=== PATIENT | male | born 1955 | race Caucasian/White ===

== ENCOUNTER 2019-12-18 12:14 | Emergency (ER) | payer MEDICAID, OTHER, SELFPAY ==
[~2019-12-18] VITALS: Ht 177.8 cm; Wt 79.0 kg
--- NOTE | 2019-12-18 12:15 | NUR ---
PT PUT ON LH BY PCP FOR "LACK OF SELF CARE" PT DENIES SI/HI. PT WITH HX OF BIPOLAR AND DEPRESSION, WAS AT PCP TODAY TO GET ABILIFY SHOT HE GETS THEM MONTHLY. PER EMS, PT HAS NOT BEEN SHOWERING REGULARLY AND HAS LOST A SIG AMOUNT OF WEIGHT OVER THE LAST MONTH. PT PLACED IN SECURE, RM, SITTER IN PLACE. BELONGINGS BAGGED IN ONE LARGE BIO BAG COVERED WITH CLEAR BAG, BAG TO REMAIN IN RM PER CHARGE D/T BEDBUGS CANNOT PLACE IN LOCKER, BAG IN VIEW OF SITTER. AWAITING ERPROVIDER TO [facility]
[2019-12-18 12:23] VITALS: BP 153/81
--- NOTE | 2019-12-18 12:35 | NUR ---
PT PLACED TAKEN TO [facility] FOR REPORT OF BEDBUGS.
[2019-12-18 13:25] LABS: BASOPHILS # (AUTO) 0.01 x10^3/uL (0-0.1); BASOPHILS % (AUTO) 0 % (0-1); EOSINOPHILS # (AUTO) 0.01 x10^3/uL (0-0.4); EOSINOPHILS % (AUTO) 0 % (1-7); LYMPHOCYTES # (AUTO) 0.74 x10^3/uL (1-3.4); LYMPHOCYTES % (AUTO) 17 % (22-44); MD NO; MEAN CORPUSCULAR HGB CONC 34.3 g/dL (33.2-36.2); MEAN CORPUSCULAR VOLUME 87.4 fL (81-97); MEAN PLATELET VOLUME 7.7 fL (7.4-10.4); MONOCYTES # (AUTO) 0.34 x10^3/uL (0.2-0.8); MONOCYTES % (AUTO) 8 % (2-9); NEUTROPHILS # (AUTO) 3.22 x10^3/uL (1.8-6.8); NEUTROPHILS % (AUTO) 75 % (42-75); PLATELET COUNT 238 x10^3/uL (130-400); RED BLOOD COUNT 4.65 x10^6/uL (4.38-5.82); RED CELL DISTRIBUTION WIDTH 16.6 % (9.4-14.8)
[2019-12-18 13:27] LABS: ALBUMIN 3.8 g/dL (3.4-5.0); ANION GAP 7 mmol/L (5-15); CHLORIDE 109 mmol/L (98-107); CREATININE 1.03 mg/dL (0.7-1.3)
[2019-12-18 13:28] LABS: SALICYLATE LEVEL < 1.7 mg/dL (2.8-20.0)
--- NOTE | 2019-12-18 13:36 | NUR ---
SUGAR AU IN TO [facility] PT, CERTIFIED.
[2019-12-18] MEDS ORDERED: PLEASE ENTER ALLERGIES MC SCH (14:00)
[2019-12-18 14:02] LABS: AMPHETAMINE SCREEN, URINE Negative (Negative); BARBITURATE SCREEN, URINE Negative (Negative); BENZODIAZEPINE SCREEN, URINE Negative (Negative); CANNABINOID SCREEN, URINE Negative (Negative); COCAINE SCREEN, URINE Negative (Negative); METHADONE SCREEN, URINE Negative (Negative); OPIATE SCREEN, URINE Negative (Negative)
--- NOTE | 2019-12-18 14:38 | NUR ---
PT PROVIDED WARM BLANKET FOR COMFORT, SITTER REMAINS IN PLACE, PT DENIES NEEDS AT THIS TIME
[2019-12-18] MEDS ORDERED: FLUOXETINE HCL 20 MG CAPSULE ONE (15:18)
[2019-12-18] MEDS ORDERED: FLUOXETINE HCL 20 MG CAPSULE PO SCH (15:30)
--- NOTE | 2019-12-18 16:43 | NUR ---
PT RESTING ON GURNEY, PT ALREADY HAD TAKEN PROZAC THIS AM, WILL HOLD THIS AFTERNOONS DOSE. MEAL TRAY ORDERED. NAD NOTED
--- NOTE | 2019-12-18 17:05 | NUR ---
PACKET FAXED TO [facility], [facility]
--- NOTE | 2019-12-18 17:58 | NUR ---
DENIED BY [facility]
--- NOTE | 2019-12-18 18:11 | NUR ---
PT PROVIDED WITH MEAL TRAY, NO OTHER NEEDS AT THIS TIME
--- NOTE | 2019-12-18 18:53 | NUR ---
REPORT GIVEN TO NAE AT [facility]
--- NOTE | 2019-12-18 19:08 | NUR ---
Pt alert and resting on gurney. Pt cooperative. Call light at bedside.
--- NOTE | 2019-12-18 20:03 | NUR ---
Pt d/c'd to [facility] care for transport to [facility]. Pt alert, oriented and cooperative at time of d/c. Pt ambulated out of ER with [facility] paramedics. Belonings with paramedics.
== END 2019-12-18 20:05 | disposition short-term general hospital (02) ==
LOC: ED 15:33
DX: R62.7 Adult failure to thrive (principal); K21.9 Gastro-esophageal reflux disease without esophagitis; E03.9 Hypothyroidism, unspecified; Z68.25 Body mass index [BMI] 25.0-25.9, adult
CPT/HCPCS: 36415; 80048; 80307; 82040; 85025; 99283

== ENCOUNTER 2020-01-01 03:56 | Emergency (ER) | payer MEDICAID ==
[~2020-01-01] VITALS: Ht 177.8 cm; Wt 79.5 kg
--- NOTE | 2020-01-01 03:59 | NUR ---
NIL X 1 WHEN CALLED FOR TRIAGE.
[2020-01-01 04:05] VITALS: BP 140/69
[2020-01-01] MEDS ORDERED: hydrOXyzine 50MG TABLET ONE (04:28)
[2020-01-01] MEDS ORDERED: hydrOXyzine 50MG TABLET PO ONE (04:30)
== END 2020-01-01 04:45 | disposition home or self-care (01) ==
LOC: ED 04:34
DX: B86 Scabies (principal)
CPT/HCPCS: 99283

== ENCOUNTER 2020-01-02 17:40 | Emergency (ER) | payer MEDICAID ==
[~2020-01-02] VITALS: Ht 180.3 cm; Wt 81.7 kg
[2020-01-02 17:48] VITALS: BP 139/66
--- NOTE | 2020-01-02 18:08 | NUR ---
PT HERE TODAY FOR PAIN IN LEFT HIP. STATES HE WALKED AN EXTENSIVE AMOUNT YESTERDAY AND IS HURTING FROM IT TODAY. STATES HE FELL TODAY, NO LOC, BUT PAIN STARTED BEFORE FALLING. PT RESTING ON [employer]. MAGALI. MELI.
[2020-01-02] MEDS ORDERED: KETOROLAC 30 MG/1 ML ONE (18:29)
[2020-01-02] MEDS ORDERED: METHOCARBAMOL 750 MG TABLET ONE (18:29)
[2020-01-02] MEDS ORDERED: KETOROLAC 30 MG/1 ML IM ONE (18:30)
[2020-01-02] MEDS ORDERED: METHOCARBAMOL 750 MG TABLET PO ONE (18:30)
--- NOTE | 2020-01-02 18:37 | NUR ---
PT REPORTS TO THIS RN THAT HE HAS BEDBUGS AT HIS HOUSE. PT BELONGINGS ARE WITH PT. PT NOTED TO HAVE RED AREAS ON BODY. PT PLACED IN ISOLATION NOW. RADIOLOGY CALLED, NO ANSWER.
== END 2020-01-02 20:49 | disposition home or self-care (01) ==
LOC: ED 18:40
DX: S39.012A Strain of muscle, fascia and tendon of lower back, initial encounter (principal); S70.02XA Contusion of left hip, initial encounter; K21.9 Gastro-esophageal reflux disease without esophagitis; E03.9 Hypothyroidism, unspecified; X58.XXXA Exposure to other specified factors, initial encounter; Y93.89 Activity, other specified; Y92.89 Other specified places as the place of occurrence of the external cause; Y99.8 Other external cause status
CPT/HCPCS: 72110; 73502; 96372; 99284; J1885

== ENCOUNTER 2020-05-19 08:54 | Inpatient (IN) | payer MEDICAID ==
[~2020-05-19] VITALS: Ht 177.8 cm; Wt 79.3 kg
--- NOTE | 2020-05-19 09:18 | NUR ---
PT CLOTHING REMOVED AND PT PLACE DIN GOWN. PT CLOTHING SOAKED IN URINE AND STOOL. PT A&OX4, COOPERATIVE. PT ON CARDIAC AND VITALS MONITORS.
[2020-05-19] MEDS ORDERED: DIPH,PERTUSS(ACELL),TET VAC/PF 0.5 ML IM-VACC ONE ×2 (09:30→09:45)
[2020-05-19] MEDS ORDERED: SODIUM CHLORIDE FLUSH 10ML SYR IVF ONE (09:30)
[2020-05-19] MEDS ORDERED: SODIUM CHLORIDE 0.9% 1,000ML IVBOLUS ONE ×2 (10:30→11:30)
[2020-05-19] MEDS ORDERED: VANCOMYCIN PER PHARMACY MC ONE (10:30)
[2020-05-19] MEDS ORDERED: PIPERACILLIN/TAZO/PMX 3.375GM 50 ML IV ONE (10:30)
[2020-05-19 10:38] LABS: MEAN CORPUSCULAR HEMOGLOBIN 24.6 pg (27.5-34.5); MEAN CORPUSCULAR HGB CONC 31.1 g/dL (33.2-36.2); MEAN CORPUSCULAR VOLUME 78.9 fL (81-97); MEAN PLATELET VOLUME 10.7 fL (7.4-10.4); PLATELET COUNT 227 x10^3/uL (130-400); RED CELL DISTRIBUTION WIDTH 19.3 % (9.4-14.8)
[2020-05-19 10:46] LABS: ALBUMIN 4.5 g/dL (3.4-5.0); ANION GAP 11 mmol/L (5-15); CALCIUM 9.9 mg/dL (8.5-10.1); CHLORIDE 125 mmol/L (98-107)
--- NOTE | 2020-05-19 10:46 | NUR ---
PT BED BATHED AND CLEAN LINENS PLACED ON BED AND PT. PT RECONNECTED TO VITALS AND DINKEY DISPATCHER. NO C/O PAIN. PT A&OX4.
[2020-05-19 10:54] LABS: ALANINE AMINOTRANSFERASE 107 U/L (12-78); ALKALINE PHOSPHATASE 142 U/L (45-117); BILIRUBIN,TOTAL 2.3 mg/dL (0.2-1.0); TROPONIN I < 0.015 ng/mL (0.000-0.045)
[2020-05-19 10:56] LABS: BASOPHILS % (AUTO) 0 % (0-1); EOSINOPHILS % (AUTO) 0 % (1-7); LYMPHOCYTES # (AUTO) 0.92 x10^3/uL (1-3.4); LYMPHOCYTES % (AUTO) 8 % (22-44); MD SCAN; MONOCYTES # (AUTO) 0.25 x10^3/uL (0.2-0.8); MONOCYTES % (AUTO) 2 % (2-9); NEUTROPHILS # (AUTO) 10.42 x10^3/uL (1.8-6.8); NEUTROPHILS % (AUTO) 90 % (42-75)
[2020-05-19] MEDS ORDERED: VANCOMYCIN 1,600 MG in SODIUM CHLORIDE 0.9% 250 ML IV ONE (11:00)
[2020-05-19 11:02] LABS: CREATININE 3.14 mg/dL (0.7-1.3)
--- NOTE | 2020-05-19 11:08 | NUR ---
BLOOD CULTURES HAVE BEEN DRAWN. IV STARTED. AWAITING ABX FROM PHARMACY
[2020-05-19] MEDS ORDERED: ABILIFY (11:36)
[2020-05-19 11:50] LABS: MICROSCOPIC INDICATED
--- NOTE | 2020-05-19 11:50 | NUR ---
ORDERED ABX INFUSING AT THIS TIME. PT RESTING CALMLY IN BED. NO STATED NEEDS AT THIS TIME. WILL CONTINUE TO MONITOR. ORDERED FLUIDS INFUSING ALSO.
--- NOTE | 2020-05-19 12:31 | NUR ---
PT PLACED ON 3L O2 DUE TO POSSIBLE DESATING. O2 SAT MONITOR UNABLE TO READ O2 SAT. BEST READ WITH GOOD WAVE FORM WAS 88%
--- NOTE | 2020-05-19 12:39 | NUR ---
LUNCH TRAY ORDERED FOR PT.
--- NOTE | 2020-05-19 13:13 | NUR ---
PT GIVEN LUNCH TRAY. PT IS EATING WITHOUT PROBLEMS. WILL CONTINUE TO MONITOR.
--- NOTE | 2020-05-19 14:24 | NUR ---
BREAK RN: ADMITTING PROVIDER IN ROOM.
--- NOTE | 2020-05-19 14:28 | NUR ---
BREAK RN: REPORT GIVEN TO RICK RUBIO. PT IS READY FOR TRANSPORT AT THIS TIME.
[2020-05-19] MEDS ORDERED: VANCOMYCIN PER PHARMACY MC PRN (14:30)
[2020-05-19] MEDS ORDERED: PHARMACY MAY ADJ FOR RENAL FX MC PRN (14:30)
[2020-05-19] MEDS ORDERED: VANCOMYCIN PMX 1GM/200ML 200 ML IVPB SCH (15:00)
[2020-05-19] MEDS ORDERED: VANCOMYCIN PMX 1GM/200ML 200 ML IV SCH (15:00)
[2020-05-19 15:12] LABS: % IRON SATURATION 28 % (20-55); ANION GAP 11 mmol/L (5-15); C-REACTIVE PROTEIN, QUANT 0.43 mg/dL (0.02-0.49); CALCIUM 9.3 mg/dL (8.5-10.1); CHLORIDE 130 mmol/L (98-107); CREATININE 3.07 mg/dL (0.7-1.3); IRON LEVEL 101 mcg/dL (65-175); TOTAL IRON BINDING CAPACITY 358 mcg/dL (250-450)
[2020-05-19 15:16] LABS: TRANSFERRIN 236 mg/dL (200-360)
[2020-05-19] MEDS ORDERED: PHARMACOKINETIC MONITORING MC PRN (15:30)
[2020-05-19] MEDS: D5%-0.45% NACL 1,000 ML IV SCH (15:56)
[2020-05-19] MEDS ORDERED: MORPHINE SULFATE 4 MG/ML, 1ML IVPush PRN (16:00)
[2020-05-19 17:03] LABS: HCT (SEDRATE) 51.8 % (39.2-51.8)
[2020-05-19] MEDS: HEPARIN 5,000 UNITS/ML, 1ML SQ SCH (18:38)
[2020-05-19] MEDS: AMPICILLIN/SULBACTAM 3 GM in SODIUM CHLORIDE 0.9% 100 ML IV SCH (18:39)
[2020-05-19 19:27] VITALS: BP 103/81
[2020-05-20] MEDS: AMPICILLIN/SULBACTAM 3 GM in SODIUM CHLORIDE 0.9% 100 ML IV SCH ×3 (02:13→18:12)
[2020-05-20] MEDS: D5%-0.45% NACL 1,000 ML IV SCH ×3 (02:14→18:14)
[2020-05-20 02:17] VITALS: BP 119/73
[2020-05-20 05:48] LABS: BASOPHILS # (AUTO) 0.03 x10^3/uL (0-0.1); BASOPHILS % (AUTO) 0 % (0-1); EOSINOPHILS # (AUTO) 0.06 x10^3/uL (0-0.4); EOSINOPHILS % (AUTO) 1 % (1-7); LYMPHOCYTES # (AUTO) 0.98 x10^3/uL (1-3.4); LYMPHOCYTES % (AUTO) 11 % (22-44); MD NO; MEAN CORPUSCULAR HEMOGLOBIN 24.8 pg (27.5-34.5); MEAN CORPUSCULAR HGB CONC 31.6 g/dL (33.2-36.2); MEAN CORPUSCULAR VOLUME 78.7 fL (81-97); MEAN PLATELET VOLUME 9.9 fL (7.4-10.4); MONOCYTES # (AUTO) 0.73 x10^3/uL (0.2-0.8); MONOCYTES % (AUTO) 8 % (2-9); NEUTROPHILS # (AUTO) 7.09 x10^3/uL (1.8-6.8); NEUTROPHILS % (AUTO) 80 % (42-75); PLATELET COUNT 114 x10^3/uL (130-400); RED BLOOD COUNT 5.49 x10^6/uL (4.38-5.82); RED CELL DISTRIBUTION WIDTH 19.8 % (9.4-14.8)
[2020-05-20 06:00] LABS: ALANINE AMINOTRANSFERASE 106 U/L (12-78); ALBUMIN 2.8 g/dL (3.4-5.0); ANION GAP 6 mmol/L (5-15); CALCIUM 7.8 mg/dL (8.5-10.1); CHLORIDE 125 mmol/L (98-107)
[2020-05-20 06:11] LABS: ALKALINE PHOSPHATASE 107 U/L (45-117); BILIRUBIN,TOTAL 1.3 mg/dL (0.2-1.0); TOTAL PROTEIN 6.3 g/dL (6.4-8.2)
[2020-05-20 07:45] VITALS: BP 126/73
[2020-05-20] MEDS: HEPARIN 5,000 UNITS/ML, 1ML SQ SCH ×3 (10:56→18:13)
[2020-05-20 14:25] VITALS: BP 112/72
[2020-05-20 21:58] VITALS: BP 114/64
[2020-05-21] MEDS: HEPARIN 5,000 UNITS/ML, 1ML SQ SCH ×2 (02:09→09:16)
[2020-05-21 02:11] VITALS: BP 130/70
[2020-05-21] MEDS: D5%-0.45% NACL 1,000 ML IV SCH ×3 (02:14→21:25)
[2020-05-21] MEDS: AMPICILLIN/SULBACTAM 3 GM in SODIUM CHLORIDE 0.9% 100 ML IV SCH ×4 (05:04→23:38)
[2020-05-21 05:58] LABS: MEAN CORPUSCULAR HEMOGLOBIN 25.1 pg (27.5-34.5); MEAN CORPUSCULAR VOLUME 78.4 fL (81-97); MEAN PLATELET VOLUME 9.9 fL (7.4-10.4); PLATELET COUNT 94 x10^3/uL (130-400); RED BLOOD COUNT 4.86 x10^6/uL (4.38-5.82); RED CELL DISTRIBUTION WIDTH 19.5 % (9.4-14.8)
[2020-05-21 06:02] LABS: CHLORIDE 123 mmol/L (98-107)
[2020-05-21 06:18] LABS: ALANINE AMINOTRANSFERASE 79 U/L (12-78); ALBUMIN 2.7 g/dL (3.4-5.0); ALKALINE PHOSPHATASE 105 U/L (45-117); ANION GAP 4 mmol/L (5-15); BILIRUBIN,TOTAL 0.6 mg/dL (0.2-1.0); CALCIUM 7.8 mg/dL (8.5-10.1); CREATININE 1.41 mg/dL (0.7-1.3); TOTAL PROTEIN 6.2 g/dL (6.4-8.2)
[2020-05-21 06:20] LABS: BASOPHILS # (AUTO) 0.02 x10^3/uL (0-0.1); BASOPHILS % (AUTO) 0 % (0-1); EOSINOPHILS # (AUTO) 0.06 x10^3/uL (0-0.4); EOSINOPHILS % (AUTO) 1 % (1-7); LYMPHOCYTES # (AUTO) 0.97 x10^3/uL (1-3.4); LYMPHOCYTES % (AUTO) 17 % (22-44); MD SCAN; MONOCYTES # (AUTO) 0.38 x10^3/uL (0.2-0.8); MONOCYTES % (AUTO) 7 % (2-9); NEUTROPHILS # (AUTO) 4.15 x10^3/uL (1.8-6.8); NEUTROPHILS % (AUTO) 74 % (42-75)
[2020-05-21 07:44] VITALS: BP 125/74
[2020-05-21] MEDS ORDERED: VANCOMYCIN PMX 1GM/200ML 200 ML IV SCH (12:00)
[2020-05-21] MEDS ORDERED: VANCOMYCIN 1,500 MG in SODIUM CHLORIDE 0.9% 250 ML IV SCH ×2 (12:00→18:00)
[2020-05-21 12:48] VITALS: BP 137/75
[2020-05-21 21:25] VITALS: BP 151/62
[2020-05-22 02:25] VITALS: BP 128/63
[2020-05-22] MEDS: D5%-0.45% NACL 1,000 ML IV SCH (05:41)
[2020-05-22] MEDS: AMPICILLIN/SULBACTAM 3 GM in SODIUM CHLORIDE 0.9% 100 ML IV SCH ×3 (05:41→17:41)
[2020-05-22 05:47] LABS: BASOPHILS # (AUTO) 0.02 x10^3/uL (0-0.1); BASOPHILS % (AUTO) 0 % (0-1); EOSINOPHILS # (AUTO) 0.06 x10^3/uL (0-0.4); EOSINOPHILS % (AUTO) 1 % (1-7); LYMPHOCYTES # (AUTO) 1.06 x10^3/uL (1-3.4); LYMPHOCYTES % (AUTO) 22 % (22-44); MD NO; MEAN CORPUSCULAR HEMOGLOBIN 25.2 pg (27.5-34.5); MEAN CORPUSCULAR HGB CONC 32.7 g/dL (33.2-36.2); MEAN PLATELET VOLUME 9.7 fL (7.4-10.4); MONOCYTES # (AUTO) 0.35 x10^3/uL (0.2-0.8); MONOCYTES % (AUTO) 7 % (2-9); NEUTROPHILS # (AUTO) 3.33 x10^3/uL (1.8-6.8); NEUTROPHILS % (AUTO) 69 % (42-75); PLATELET COUNT 82 x10^3/uL (130-400); RED BLOOD COUNT 4.26 x10^6/uL (4.38-5.82); RED CELL DISTRIBUTION WIDTH 18.7 % (9.4-14.8)
[2020-05-22 06:01] LABS: CHLORIDE 121 mmol/L (98-107)
[2020-05-22 06:08] LABS: ALANINE AMINOTRANSFERASE 50 U/L (12-78); ALBUMIN 2.2 g/dL (3.4-5.0); ALKALINE PHOSPHATASE 79 U/L (45-117); BILIRUBIN,TOTAL 0.3 mg/dL (0.2-1.0); CALCIUM 7.7 mg/dL (8.5-10.1); CREATININE 1.28 mg/dL (0.7-1.3); TOTAL PROTEIN 5.4 g/dL (6.4-8.2)
[2020-05-22 06:12] LABS: ANION GAP 5 mmol/L (5-15)
[2020-05-22 09:00] VITALS: BP 124/75
[2020-05-22] MEDS ORDERED: GADOTERATE 10 MMOL/20 ML SYR ONE (11:18)
[2020-05-22 13:38] VITALS: BP 115/71
[2020-05-22] MEDS ORDERED: VANCOMYCIN 1,500 MG in SODIUM CHLORIDE 0.9% 250 ML IV SCH (18:00)
[2020-05-22 20:18] VITALS: BP 116/63
[2020-05-23] MEDS: AMPICILLIN/SULBACTAM 3 GM in SODIUM CHLORIDE 0.9% 100 ML IV SCH ×2 (00:05→05:37)
[2020-05-23 00:40] VITALS: BP 113/70
[2020-05-23 05:57] LABS: MEAN CORPUSCULAR HEMOGLOBIN 24.7 pg (27.5-34.5); MEAN CORPUSCULAR HGB CONC 32.3 g/dL (33.2-36.2); MEAN CORPUSCULAR VOLUME 76.6 fL (81-97); MEAN PLATELET VOLUME 10.8 fL (7.4-10.4); PLATELET COUNT 88 x10^3/uL (130-400); RED BLOOD COUNT 4.37 x10^6/uL (4.38-5.82); RED CELL DISTRIBUTION WIDTH 18.8 % (9.4-14.8)
[2020-05-23 05:59] LABS: ANION GAP 3 mmol/L (5-15); CALCIUM 8.1 mg/dL (8.5-10.1); CHLORIDE 118 mmol/L (98-107); CREATININE 1.06 mg/dL (0.7-1.3)
[2020-05-23 06:11] LABS: BASOPHILS # (AUTO) 0.01 x10^3/uL (0-0.1); BASOPHILS % (AUTO) 0 % (0-1); EOSINOPHILS # (AUTO) 0.08 x10^3/uL (0-0.4); EOSINOPHILS % (AUTO) 2 % (1-7); LYMPHOCYTES % (AUTO) 17 % (22-44); MD SCAN; MONOCYTES # (AUTO) 0.32 x10^3/uL (0.2-0.8); MONOCYTES % (AUTO) 7 % (2-9); NEUTROPHILS # (AUTO) 3.63 x10^3/uL (1.8-6.8); NEUTROPHILS % (AUTO) 75 % (42-75)
[2020-05-23] MEDS: AMOXICILLIN/CLAV 875-125MG TABLET PO SCH ×2 (08:49→20:46)
[2020-05-23 08:51] VITALS: BP 135/88
[2020-05-23] MEDS: LACTOBACILLUS CHEW TABLET PO SCH ×3 (11:48→20:46)
[2020-05-23 12:55] VITALS: BP 104/62
[2020-05-23 19:59] VITALS: BP 130/72
[2020-05-24 01:45] VITALS: BP 128/68
[2020-05-24 06:56] VITALS: BP 147/77
[2020-05-24] MEDS: AMOXICILLIN/CLAV 875-125MG TABLET PO SCH ×2 (08:11→21:20)
[2020-05-24] MEDS: LACTOBACILLUS CHEW TABLET PO SCH ×4 (08:11→21:20)
[2020-05-24 13:15] VITALS: BP 115/73
[2020-05-24 19:17] VITALS: BP 113/77
[2020-05-25 00:31] VITALS: BP 144/72
[2020-05-25 08:10] VITALS: BP 143/77
[2020-05-25] MEDS: LACTOBACILLUS CHEW TABLET PO SCH ×4 (09:37→21:35)
[2020-05-25] MEDS: AMOXICILLIN/CLAV 875-125MG TABLET PO SCH ×2 (09:37→21:35)
[2020-05-25 14:55] VITALS: BP 115/76
[2020-05-25 18:55] VITALS: BP 126/74
[2020-05-26 00:28] VITALS: BP 108/68
[2020-05-26] MEDS: LACTOBACILLUS CHEW TABLET PO SCH ×3 (05:44→15:33)
[2020-05-26 06:51] VITALS: BP 144/77
[2020-05-26] MEDS: AMOXICILLIN/CLAV 875-125MG TABLET PO SCH (09:20)
[2020-05-26] MEDS ORDERED: AMOX1TAB12 PO (11:11)
[2020-05-26 14:18] VITALS: BP 129/78
== END 2020-05-26 16:03 | disposition home or self-care (01) | DRG 871 ==
LOC: ED 13:06 → EDIP 13:21 → 3N 14:43
PROVIDERS: ADMIT Internal Medicine; ATTEND Family Medicine
PROC: 0T9B70Z Drainage of Bladder with Drainage Device, Via Natural or Artificial Opening (ICD-10-PCS; principal; 2020-05-19)
DX: A41.9 Sepsis, unspecified organism (principal); N17.0 Acute kidney failure with tubular necrosis; E87.0 Hyperosmolality and hypernatremia; E87.1 Hypo-osmolality and hyponatremia; L03.115 Cellulitis of right lower limb; L03.116 Cellulitis of left lower limb; N39.0 Urinary tract infection, site not specified; D69.6 Thrombocytopenia, unspecified; E03.9 Hypothyroidism, unspecified; E86.0 Dehydration; F31.9 Bipolar disorder, unspecified; I35.8 Other nonrheumatic aortic valve disorders; J44.9 Chronic obstructive pulmonary disease, unspecified; N40.0 Benign prostatic hyperplasia without lower urinary tract symptoms; R32 Unspecified urinary incontinence; R62.7 Adult failure to thrive; R65.20 Severe sepsis without septic shock; Z59.0 Homelessness
CPT/HCPCS: 36415; 71045; 72190; 76770; 80048; 80053; 81001; 82550; 82728; 83036; 83540; 83550; 83605; 83735; 84100; 84145; 84443; 84466; 84484; 85025; 85651; 86022; 86140; 87040; 87086; 90471; 90715; 93005; 93306; 96365; 96366; 96375; G0378; J0295; J1644; J2543; J3370; A9575; J7030; J7050

== ENCOUNTER 2020-05-28 15:27 | Emergency (ER) | payer MEDICAID ==
[~2020-05-28] VITALS: Ht 177.8 cm; Wt 77.2 kg
[~2020-05-28 15:27] MED LIST: ABILIFY; AMOX1TAB12 PO
[2020-05-28 15:35] VITALS: BP 121/72
--- NOTE | 2020-05-28 17:11 | NUR ---
THIS RN DID NOT TRIAGE THIS PATIENT. PATIENT WAS TRIAGED BY LIAM Herzog RN.
--- NOTE | 2020-05-28 17:38 | NUR ---
[facility] [employer]NER: PT TO ROOM FROM LOBBY
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
--- NOTE | 2020-05-28 18:45 | NUR ---
Patient given discharge instructions and they have confirmed that they understand the instructions. Patient ambulatory with steady gait.
== END 2020-05-28 18:46 | disposition home or self-care (01) ==
LOC: ED 18:10
DX: Z00.00 Encounter for general adult medical examination without abnormal findings (principal); K21.9 Gastro-esophageal reflux disease without esophagitis; E03.9 Hypothyroidism, unspecified; Z72.9 Problem related to lifestyle, unspecified
CPT/HCPCS: 99283

== ENCOUNTER 2020-06-12 12:54 | Emergency (ER) | payer MEDICAID ==
[~2020-06-12] VITALS: Ht 177.8 cm; Wt 78.9 kg
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
[2020-06-12 15:14] LABS: HCT (SEDRATE) 32.1 % (39.2-51.8)
[2020-06-12 15:15] LABS: BASOPHILS # (AUTO) 0.03 x10^3/uL (0-0.1); BASOPHILS % (AUTO) 0 % (0-1); EOSINOPHILS # (AUTO) 0.03 x10^3/uL (0-0.4); EOSINOPHILS % (AUTO) 0 % (1-7); LYMPHOCYTES # (AUTO) 1.27 x10^3/uL (1-3.4); LYMPHOCYTES % (AUTO) 16 % (22-44); MD NO; MEAN CORPUSCULAR HEMOGLOBIN 24.9 pg (27.5-34.5); MEAN CORPUSCULAR VOLUME 77.7 fL (81-97); MEAN PLATELET VOLUME 7.3 fL (7.4-10.4); MONOCYTES # (AUTO) 0.36 x10^3/uL (0.2-0.8); MONOCYTES % (AUTO) 5 % (2-9); NEUTROPHILS # (AUTO) 6.06 x10^3/uL (1.8-6.8); NEUTROPHILS % (AUTO) 78 % (42-75); PLATELET COUNT 349 x10^3/uL (130-400); RED BLOOD COUNT 4.12 x10^6/uL (4.38-5.82); RED CELL DISTRIBUTION WIDTH 19.4 % (9.4-14.8)
[2020-06-12 15:28] LABS: ALBUMIN 2.6 g/dL (3.4-5.0); ANION GAP 7 mmol/L (5-15); CHLORIDE 101 mmol/L (98-107); CREATININE 0.84 mg/dL (0.7-1.3)
[2020-06-12] MEDS ORDERED: SODIUM CHLORIDE FLUSH 10ML SYR IVF ONE (16:30)
[2020-06-12] MEDS ORDERED: OMNIPAQUE 350 MG/ML, 100ML BOTTLE ONE (16:59)
--- NOTE | 2020-06-12 17:27 | NUR ---
incontinent of urine x 2. Patient cleaned and linens changed. VSS.
[2020-06-12] MEDS ORDERED: PIPERACILLIN/TAZO/PMX 3.375GM 50 ML IV ONE (17:30)
[2020-06-12] MEDS ORDERED: VANCOMYCIN PER PHARMACY MC PRN ×2 (17:30→18:00)
[2020-06-12] MEDS ORDERED: PIPERACILLIN/TAZO/PMX 3.375GM 50 ML ONE (17:35)
[2020-06-12] MEDS ORDERED: ARIP2TAB2 IM (17:46)
[2020-06-12] MEDS ORDERED: FLUO40CA9 PO (17:46)
--- NOTE | 2020-06-12 17:50 | NUR ---
Malka Cleveland APRN at bedside. Librado avila.
[2020-06-12] MEDS ORDERED: PIPERACILLIN/TAZO/PMX 3.375GM 50 ML IV SCH (18:00)
[2020-06-12] MEDS ORDERED: VANCOMYCIN 2,200 MG in SODIUM CHLORIDE 0.9% 500 ML IV ONE (18:00)
[2020-06-12] MEDS ORDERED: PHARMACOKINETIC MONITORING MC PRN (19:00)
--- NOTE | 2020-06-12 19:22 | NUR ---
Resting in [facility]. Repositioned for comfort. VSS. No needs.
--- NOTE | 2020-06-12 19:23 | NUR ---
Patient required Plastic Surgery per the specialist doctors that were contacted (both ortho and general surgery). Attempted to call our plastics chief of production who did not respond. As patient requires plastic surgery he therefore needed to be transferred to [facility]. Patient accepted per consult plastics doctor Dr. Tabby Barnett. Patient then accepted by Ary at [facility]. [facility]
--- NOTE | 2020-06-12 19:53 | NUR ---
Called [facility] as no call back from [facility] and Alondra at [facility] said [facility]
--- NOTE | 2020-06-12 20:14 | NUR ---
Dr. De Santiago on the phone with [facility] Hospitalist at this time.
--- NOTE | 2020-06-12 20:15 | NUR ---
Patient accepted by Dr. Jean Boykin Hospitalist. Awaiting call back from Alondra from [facility] with bed number.
[2020-06-12 20:26] VITALS: BP 106/62
--- NOTE | 2020-06-12 20:33 | NUR ---
Patient asking for food. According to MD Jonnathan, it is unclear whether or not the patient is going to surgery at [facility] or not, so he is NPO.
--- NOTE | 2020-06-12 20:43 | NUR ---
Patient to go to [place] [id number]. Phone number for report is [phone]
--- NOTE | 2020-06-12 20:56 | NUR ---
Report called to JOANNE Aguero on ortho at [facility].
--- NOTE | 2020-06-12 22:05 | NUR ---
RECEIVED REPORT FROM RUFINO RUBIO. ASSUMING CARE AT THIS TIME. AWAITING [facility] FOR TRANSPORT AT THIS TIME. PT BELONGINGS PLACED IN BAG, WALKER AT BEDSIDE.
--- NOTE | 2020-06-12 22:52 | NUR ---
GAMAL on scene to take patient to [facility].
--- NOTE | 2020-06-12 22:55 | NUR ---
JENNIFER authorization code: [id number]
[2020-06-13] MEDS ORDERED: FLUOXETINE HCL 80 MG PO SCH (09:00)
[2020-06-14] MEDS ORDERED: ACETAMINOPHEN 325 MG TABLET PO PRN (23:30)
[2020-06-14] MEDS ORDERED: PROMETHAZINE 25 MG/ML, 1ML IM PRN (23:30)
[2020-06-14] MEDS ORDERED: DIPHENHYDRAMINE 25 MG CAPSULE PO PRN (23:30)
[2020-06-14] MEDS ORDERED: ONDANSETRON 2MG/ML, 2ML IVPush PRN (23:30)
[2020-06-14] MEDS ORDERED: MELATONIN 5 MG TABLET PO PRN (23:30)
[2020-06-14] MEDS ORDERED: hydrALAzine 20 MG/ML, 1ML IVPush PRN (23:30)
[2020-06-14] MEDS ORDERED: HEPARIN 5,000 UNITS/ML, 1ML SQ SCH (23:30)
[2020-06-14] MEDS ORDERED: POLYETHYLENE GLYCOL 17 GM PACKET PO PRN (23:30)
[2020-06-14] MEDS ORDERED: BISACODYL 10 MG SUPP PR PRN (23:30)
[2020-06-14] MEDS ORDERED: morphine SULFATE 10 MG/ML, 1ML IVPush PRN (23:30)
[2020-06-14] MEDS ORDERED: NICOTINE 14MG/24 HR PATCH.TD24 TD SCH (23:30)
[2020-06-15] MEDS ORDERED: ASPIRIN 325 MG TABLET EC PO SCH (06:00)
[2020-06-15] MEDS ORDERED: SENNA/DOCUSATE TABLET PO SCH (09:00)
[2020-06-15] MEDS ORDERED: ARIPIPRAZOLE 2 MG TABLET PO SCH (09:00)
== END 2020-06-12 22:54 | disposition other institution (70) ==
LOC: ED 16:05
DX: M25.552 Pain in left hip (principal); K21.9 Gastro-esophageal reflux disease without esophagitis; E03.9 Hypothyroidism, unspecified
CPT/HCPCS: 36415; 72193; 80048; 82040; 83605; 84145; 85025; 85651; 86140; 87040; 96365; 96366; 96368; 99285; J2543; J3370; J7040; Q9967